=== PATIENT | female | born 1990 | race Caucasian/White ===

== ENCOUNTER 2025-02-17 06:22 | Day surgery (SDC) | payer OTHER, SELFPAY | END 2025-02-17 11:45 | disposition home or self-care (01) | LOC: GI 06:22 | PROVIDERS: ATTENDING PHYSICIAN Specialist | DX: K51.90 Ulcerative colitis, unspecified, without complications (principal); D12.3 Benign neoplasm of transverse colon; K57.30 Diverticulosis of large intestine without perforation or abscess without bleeding; K62.89 Other specified diseases of anus and rectum | CPT/HCPCS: 45380; 88305 ==